=== PATIENT | female | born 1960 | race Caucasian/White ===

== ENCOUNTER 2022-03-29 10:32 | Outpatient (CLI) | payer OTHER ==
[2022-03-29 13:12] LABS: Hemoglobin 12.8 g/dL (12.0-15.5); Mean Corpuscular HGB CONC 33.7 g/dL (32.0-36.0); Mean Corpuscular Volume 89.2 fl (81.6-98.3); Mean Platelet Volume 10.2 fl (7.4-10.4); Platelet Count 195 10x3/uL (150-450); RBC Distribution Width 12.8 % (11.5-14.5); Red Blood Cell (RBC) Count 4.26 10x6/uL (3.90-5.03); White Blood Cell (WBC) Count 5.2 10x3/uL (3.5-10.5)
[2022-03-29 13:20] LABS: BHCG - Serum Negative (NEGATIVE); Pregs Control Background? CLEAR/WHITE (CLR/WHITE); Pregs Control Bar Appear? YES (CONTROL BAR)
== END 2022-03-29 10:33 | disposition home or self-care (01) ==
LOC: CSHLAB 10:32
PROVIDERS: ATTEND Obstetrics & Gynecology
DX: Z01.818 Encounter for other preprocedural examination (principal); N81.2 Incomplete uterovaginal prolapse
CPT/HCPCS: 84703; 85027; 86850; 86900; 86901; 93005; 93010

== ENCOUNTER 2022-08-01 05:37 | Day surgery (SDC) | payer OTHER ==
[2022-07-30 11:43] LABS: BHCG - Serum Negative (NEGATIVE); Pregs Control Background? CLEAR/WHITE (CLR/WHITE); Pregs Control Bar Appear? YES (CONTROL BAR)
[2022-07-30 11:44] LABS: Hemoglobin 12.8 g/dL (12.0-15.5); Mean Corpuscular HGB CONC 33.2 g/dL (32.0-36.0); Mean Corpuscular Hemoglobin 29.7 pg (27.0-33.0); Mean Corpuscular Volume 89.3 fl (81.6-98.3); Mean Platelet Volume 10.1 fl (7.4-10.4); Platelet Count 182 10x3/uL (150-450); RBC Distribution Width 13.2 % (11.5-14.5); Red Blood Cell (RBC) Count 4.31 10x6/uL (3.90-5.03); White Blood Cell (WBC) Count 5.9 10x3/uL (3.5-10.5)
[2022-07-30 11:54] LABS: Anion Gap 15 mmol/L (10-20); BUN (Urea Nitrogen) 19 mg/dL (9.8-20.1); Calc. Creatinine Clearance 0 mL/min (70-130); Calcium 9.6 mg/dL (7.8-10.44); Carbon Dioxide 26 mmol/L (23-31); Chloride 104 mmol/L (98-107); Estimated GFR 81; Glucose 97 mg/dL (80-115); Potassium 4.4 mmol/L (3.5-5.1); Sodium 141 mmol/L (136-145)
[2022-07-30 13:33] VITALS: BMI 22.4
[2022-08-01] MEDS ORDERED: CeleCOXIB 100 MG CAP ONE (06:23)
[2022-08-01] MEDS ORDERED: Famotidine/PF 20 mg/2ml Vial ONE (06:24)
[2022-08-01] MEDS ORDERED: Gabapentin 300 MG CAP ONE (06:24)
[2022-08-01] MEDS ORDERED: Lidocaine 1% w/Epinephrine 1:200K 30 ML VIAL ONE (06:35)
[2022-08-01] MEDS ORDERED: Bupivacaine HCl 0.5%/Epinephrine 1:200,000/PF 30 ml Vial ONE (06:35)
[2022-08-01] MEDS ORDERED: Fentanyl 100 MCG/2 ML VIAL ONE ×2 (06:36→09:45)
[2022-08-01] MEDS ORDERED: PROPOFOL 20 ML ONE (06:36)
[2022-08-01] MEDS ORDERED: Dexamethasone 4 mg/ml Vial ONE (06:38)
[2022-08-01] MEDS ORDERED: Lidocaine 1% PF 5 ML VIAL ONE (06:38)
[2022-08-01] MEDS ORDERED: Ondansetron PF 4 MG/2 ML Vial ONE (06:38)
[2022-08-01] MEDS ORDERED: Rocuronium Bromide 10 MG/ML (10ML VIAL) ONE (06:38)
[2022-08-01] MEDS ORDERED: Promethazine HCl 25 MG/ML VIAL ONE (06:44)
[2022-08-01] MEDS ORDERED: HYDROmorphone 0.5 MG/0.5 ML SYRINGE ONE (06:45)
[2022-08-01] MEDS ORDERED: CEFAZOLIN 2 GM VIAL ONE (06:59)
[2022-08-01] MEDS ORDERED: Glycopyrrolate 0.2 MG/ML 5 ML SYRINGE ONE (08:33)
[2022-08-01] MEDS ORDERED: Ketorolac Tromethamine 30 MG/ML VIAL ONE (09:55)
[2022-08-01] MEDS ORDERED: Fentanyl 100 MCG/2 ML VIAL SLOW IVP PRN (10:42)
[2022-08-01] MEDS ORDERED: diphenhydrAMINE 25 MG CAP PO PRN (10:42)
[2022-08-01] MEDS ORDERED: Bisacodyl 10 MG SUPP PR PRN (10:42)
[2022-08-01] MEDS ORDERED: Promethazine HCl 25 MG/ML VIAL IM PRN (10:42)
[2022-08-01] MEDS ORDERED: Simethicone Chewable 80 MG TAB PO PRN (10:42)
[2022-08-01] MEDS ORDERED: Ondansetron PF 4 MG/2 ML Vial IVP PRN (10:42)
[2022-08-01] MEDS ORDERED: traMADol HCl 50 MG TAB PO PRN (10:42)
[2022-08-01] MEDS ORDERED: HYDROcodone/Acetaminophen 5/325 mg Tablet PO PRN ×2 (10:42)
[2022-08-01] MEDS: Ketorolac Tromethamine 30 MG/ML VIAL IVP SCH ×2 (16:05→21:34)
[2022-08-01] MEDS: Sodium Chloride 0.9% 1,000 ML IV SCH (16:09)
[2022-08-01] MEDS: Docusate 100 MG CAP PO SCH (21:34)
[2022-08-02] MEDS: Sodium Chloride 0.9% 1,000 ML IV SCH (00:05)
[2022-08-02 04:16] LABS: Mean Corpuscular Volume 88.3 fl (81.6-98.3); Mean Platelet Volume 10.4 fl (7.4-10.4); Platelet Count 145 10x3/uL (150-450); RBC Distribution Width 12.9 % (11.5-14.5); Red Blood Cell (RBC) Count 3.67 10x6/uL (3.90-5.03); White Blood Cell (WBC) Count 7.7 10x3/uL (3.5-10.5)
[2022-08-02] MEDS: Ketorolac Tromethamine 30 MG/ML VIAL IVP SCH (04:51)
[2022-08-02] MEDS: Docusate 100 MG CAP PO SCH (08:59)
[2022-08-02] MEDS ORDERED: Losartan Potassium 50 MG TAB PO SCH (09:00)
[2022-08-02] MEDS ORDERED: Hydrochlorothiazide 25 MG TAB PO SCH (09:00)
[2022-08-02] MEDS ORDERED: Ibuprofen 600 MG TAB PO SCH (10:00)
[2022-08-02 11:26] VITALS: BP 119/58; TEMP 98
== END 2022-08-02 12:30 | disposition home or self-care (01) ==
LOC: CSHSDC 05:37 → CSHPP 10:44 → UNDOADMOB 10:44 → UNDODISOB 08-02 12:30 → CSHSDC 08-02 12:30
PROVIDERS: ATTEND Obstetrics & Gynecology
PROC: 8E0W4CZ Robotic Assisted Procedure of Trunk Region, Percutaneous Endoscopic Approach (ICD-10-PCS; principal; 2022-08-02)
PROC: 0UT74ZZ Resection of Bilateral Fallopian Tubes, Percutaneous Endoscopic Approach (ICD-10-PCS; principal; 2022-08-02)
PROC: 0UT94ZZ Resection of Uterus, Percutaneous Endoscopic Approach (ICD-10-PCS; principal; 2022-08-02)
PROC: 0JQC0ZZ Repair Pelvic Region Subcutaneous Tissue and Fascia, Open Approach (ICD-10-PCS; principal; 2022-08-02)
PROC: 0UT24ZZ Resection of Bilateral Ovaries, Percutaneous Endoscopic Approach (ICD-10-PCS; principal; 2022-08-02)
DX: N87.9 Dysplasia of cervix uteri, unspecified (principal); N80.03 Adenomyosis of the uterus; N72 Inflammatory disease of cervix uteri; N81.3 Complete uterovaginal prolapse; N39.41 Urge incontinence; I10 Essential (primary) hypertension; Z79.899 Other long term (current) drug therapy
CPT/HCPCS: 36415; 80048; 84703; 85027; 86850; 86900; 86901; 88307; J1100; J1170; J1885; J2405; J2550; J2704; J3010; J7050; S0028